=== PATIENT | male | born 1965 | race African-American/Black ===

== ENCOUNTER 2018-07-30 20:24 | Emergency (ER) | payer MEDICARE, OTHER ==
[~2018-07-30 20:24] MED LIST: Iopamidol 370 76% 100 ML VIAL ONE
[2018-07-30 21:39] LABS: INR-International Normal Ratio 1.1; PTT 29.4 SEC (22.9-36.1); Prothrombin Time 13.9 SEC (12.0-14.7)
[2018-07-30 21:42] LABS: Anisocytosis SLIGHT = 6-15 cells (100X) (0-5/hpf); Band 3 % (5-11); Eosinophils 4 % (0-10); Hemoglobin 14.3 g/dL (14.0-18.0); Lymphocytes 22 % (21-51); MDiff Complete? YES; Mean Corpuscular HGB CONC 29.9 g/dL (32.0-36.0); Mean Corpuscular Hemoglobin 23.5 pg (27.0-31.0); Mean Corpuscular Volume 78.4 fL (78.0-98.0); Mean Platelet Volume 11.2 fL (7.4-10.4); Microcytosis SLIGHT = 6-15 cells (100X) (0-5/hpf); Monocytes 4 % (0-10); Neutrophil 67 % (42-75); Platelet Count 189 thou/uL (130-400); Platelet Morphology Comment Appears Adequate; RBC Distribution Width 14.2 % (11.5-14.5); White Blood Cell (WBC) Count 8.2 thou/uL (4.8-10.8)
[2018-07-30 21:45] LABS: ALT (SGPT) 20 U/L (8-55); AST (SGOT) 28 U/L (5-34); Alkaline Phosphatase 94 U/L (40-150); Anion Gap 15 mmol/L (10-20); BUN (Urea Nitrogen) 23 mg/dL (8.4-25.7); Bilirubin, Total 0.4 mg/dL (0.2-1.2); Calc. Creatinine Clearance 0 mL/min (70-130); Calcium 9.5 mg/dL (7.8-10.44); Carbon Dioxide 24 mmol/L (22-29); Chloride 106 mmol/L (98-107); Estimated GFR-MDRD 50; Globulin 3.2 g/dL (2.4-3.5); Glucose 114 mg/dL (70-105); Magnesium 2.8 mg/dL (1.6-2.6); Potassium 4.1 mmol/L (3.5-5.1); Protein, Total 7.2 g/dL (6.0-8.3); Sodium 141 mmol/L (136-145)
--- NOTE | 2018-07-30 22:18 | CT ---
NONCONTRAST ENHANCED CT IMAGES BRAIN 07/30/18 HISTORY: Headache. Noncontrast enhanced CT images of the brain obtained. Comparison made to previous exam from 12/28/11. FINDINGS/IMPRESSION: Noncontrast enhanced CT images of the brain demonstrates some deep white matter ischemic changes. No evidence of acute intracranial masses, hemorrhages, strokes or contusions seen. POS: [facility]
--- NOTE | 2018-07-30 23:14 | CT ---
CONTRAST ENHANCED CT IMAGES OF THE BRAIN: 07/30/18 HISTORY: Headache. Nose bleed. Contrast enhanced CT images of the brain obtained. Deep white matter ischemic changes seen. No evidence of abnormal areas of intracranial enhancement se en. IMPRESSION: 1. Deep white matter ischemic changes. 2. Vertebrobasilar dolichoectasia. POS: [facility]
== END 2018-07-31 01:35 | disposition short-term general hospital (02) ==
LOC: NAV ERS 20:24
DX: R51 Headache (principal); R04.0 Epistaxis; I16.0 Hypertensive urgency; G45.0 Vertebro-basilar artery syndrome; I10 Essential (primary) hypertension; Z86.73 Personal history of transient ischemic attack (TIA), and cerebral infarction without residual deficits; F17.210 Nicotine dependence, cigarettes, uncomplicated
CPT/HCPCS: 70450; 70460; 80053; 83735; 84484; 85025; 85610; 85730; 93005; 94760; Q9967

== ENCOUNTER 2018-08-02 17:50 | Emergency (ER) | payer MEDICARE, OTHER ==
[2018-08-02] MEDS ORDERED: Metoprolol Tartrate 50 MG TAB ONE (18:33)
[2018-08-02] MEDS ORDERED: Hydrochlorothiazide 25 MG TAB ONE (18:33)
[2018-08-02] MEDS ORDERED: Losartan Potassium 50 MG TAB ONE ×2 (18:33→18:36)
[2018-08-02] MEDS ORDERED: NIFEdipine XL 30 MG TAB ONE (18:33)
[2018-08-02] MEDS ORDERED: Spironolactone 25 MG TAB PO SCH (18:45)
[2018-08-02] MEDS ORDERED: Metoprolol Tartrate 5 MG/5 ML VIAL ONE (21:40)
[2018-08-02] MEDS ORDERED: Fentanyl 100 MCG/2 ML VIAL ONE (21:57)
[2018-08-02 22:11] LABS: Hemoglobin 15.6 g/dL (14.0-18.0); Red Blood Cell (RBC) Count 6.65 mill/uL (4.70-6.10); White Blood Cell (WBC) Count 12.9 thou/uL (4.8-10.8)
[2018-08-02 22:12] LABS: #Lymphocytes 1.9 thou/uL (1.20-3.40); #Monocytes 1.2 thou/uL (0.11-0.59); #Neutrophils 9.2 thou/uL (1.40-6.50); %Basophils 1.1 % (0.0-1.0); %Eosinophils 4.3 % (0.0-10.0); %Lymphocytes 14.6 % (21.0-51.0); Mean Corpuscular HGB CONC 30.2 g/dL (32.0-36.0); Mean Corpuscular Hemoglobin 23.5 pg (27.0-31.0); Mean Corpuscular Volume 77.9 fL (78.0-98.0); Mean Platelet Volume 10.5 fL (7.4-10.4); Platelet Count 217 thou/uL (130-400); RBC Distribution Width 14.3 % (11.5-14.5)
[2018-08-02 22:13] LABS: #Basophils 0.1 thou/uL (0.0-0.2); #Eosinphils 0.6 thou/uL (0.0-0.7); Microcytosis SLIGHT = 6-15 cells (100X) (0-5/hpf)
[2018-08-02 22:15] LABS: INR-International Normal Ratio 1.1; PTT 29.5 SEC (22.9-36.1); Prothrombin Time 14.2 SEC (12.0-14.7)
[2018-08-02] MEDS ORDERED: niCARdipine 20MG In NaCl 20 MG/200 ML BAG ONE (22:17)
[2018-08-02 22:18] LABS: Anion Gap 16 mmol/L (10-20); BUN (Urea Nitrogen) 29 mg/dL (8.4-25.7); Bilirubin, Total 1.1 mg/dL (0.2-1.2); Calc. Creatinine Clearance 0 mL/min (70-130); Calcium 10.4 mg/dL (7.8-10.44); Carbon Dioxide 24 mmol/L (22-29); Chloride 102 mmol/L (98-107); Estimated GFR-MDRD 88; Glucose 97 mg/dL (70-105); Potassium 3.7 mmol/L (3.5-5.1); Sodium 138 mmol/L (136-145)
[2018-08-02 22:19] LABS: Alkaline Phosphatase 101 U/L (40-150); Protein, Total 7.7 g/dL (6.0-8.3)
[2018-08-02 22:20] LABS: ALT (SGPT) 18 U/L (8-55); AST (SGOT) 20 U/L (5-34); Albumin 4.4 g/dL (3.5-5.0); Globulin 3.3 g/dL (2.4-3.5)
== END 2018-08-02 22:53 | disposition short-term general hospital (02) ==
LOC: NAV ERS 17:50
DX: R04.0 Epistaxis (principal); I10 Essential (primary) hypertension; Z86.73 Personal history of transient ischemic attack (TIA), and cerebral infarction without residual deficits; F17.210 Nicotine dependence, cigarettes, uncomplicated; Z79.899 Other long term (current) drug therapy
CPT/HCPCS: 85025; 85610; 85730; 96365; 96375; J3010

== ENCOUNTER 2019-10-03 14:02 | Emergency (ER) | payer MEDICARE, OTHER ==
[2019-10-03 15:34] LABS: #Basophils 0.2 thou/uL (0.0-0.2); #Eosinphils 0.3 thou/uL (0.0-0.7); #Lymphocytes 1.4 thou/uL (1.20-3.40); #Monocytes 0.6 thou/uL (0.11-0.59); #Neutrophils 7.1 thou/uL (1.40-6.50); %Basophils 2.5 % (0.0-1.0); %Eosinophils 3.3 % (0.0-10.0); %Lymphocytes 14.5 % (21.0-51.0); %Monocytes 6.4 % (0.0-10.0); %Neutrophils 73.2 % (42.0-75.0); Hemoglobin 12.6 g/dL (14.0-18.0); Mean Corpuscular HGB CONC 29.8 g/dL (32.0-36.0); Mean Corpuscular Volume 80.7 fL (78.0-98.0); Mean Platelet Volume 9.8 fL (7.4-10.4); Platelet Count 248 thou/uL (130-400); RBC Distribution Width 13.4 % (11.5-14.5); Red Blood Cell (RBC) Count 5.27 mill/uL (4.70-6.10); White Blood Cell (WBC) Count 9.8 thou/uL (4.8-10.8)
[2019-10-03 15:40] LABS: ALT (SGPT) 15 U/L (8-55); AST (SGOT) 13 U/L (5-34); Albumin 3.8 g/dL (3.5-5.0); Alkaline Phosphatase 81 U/L (40-110); Anion Gap 15 mmol/L (10-20); BUN (Urea Nitrogen) 20 mg/dL (8.4-25.7); Bilirubin, Total 0.3 mg/dL (0.2-1.2); Calc. Creatinine Clearance 0 mL/min (70-130); Calcium 8.5 mg/dL (7.8-10.44); Carbon Dioxide 25 mmol/L (22-29); Chloride 109 mmol/L (98-107); Estimated GFR-MDRD 45; Globulin 2.6 g/dL (2.4-3.5); Glucose 118 mg/dL (70-105); Lipase 54 U/L (8-78); Potassium 3.9 mmol/L (3.5-5.1); Protein, Total 6.4 g/dL (6.0-8.3); Sodium 145 mmol/L (136-145)
[2019-10-03 15:50] LABS: INR-International Normal Ratio 1.1; PTT 30.9 sec (22.9-36.1); Prothrombin Time 13.8 sec (12.0-14.7)
[2019-10-03 16:01] LABS: CKMB 1.6 ng/mL (0-6.6)
--- NOTE | 2019-10-03 16:04 | CT ---
CT BRAIN WITHOUT CONTRAST: HISTORY:Dizziness COMPARISON:07/30/2018 FINDINGS: There are foci of decreased attenuation in the periventricular white matter, consistent with chronic small vessel ischemic disease. No evidence of acute infarct, hemorrhage, midline shift or abnormal extra-axial fluid collections is seen. The ventricular size is appropriate and the basilar cisterns are patent. The bony calvarium is intact. The visualized paranasal sinuses and mastoid air cells are well aerated. IMPRESSION: No CT evidence of acute intracranial process.
[2019-10-03] MEDS ORDERED: hydrALAZINE 20 MG/ML VIAL ONE ×2 (16:50→19:42)
[2019-10-03 17:42] LABS: Bilirubin Negative (Negative); Blood, Urine Negative (Negative); Glucose, Urine (Dipstick) Negative (Negative); Leukocyte Small (Negative); Nitrite Negative (Negative); Protein, Urine (Dipstick) Negative (Neg-Trace); Urobilinogen 0.2 mg/dL (Less than 2)
[2019-10-03 17:52] LABS: Amphetamine Not Detected (NotDetected); Barbiturates Screen Not Detected (NotDetected); Benzodiazepine Screen Not Detected (NotDetected); Cocaine Metabolite Screen Not Detected (NotDetected); Medtox Control Line Valid? VALID (VALID); Methadone Not Detected (NotDetected); Methamphetamine Not Detected (NotDetected); Opiate Screen Not Detected (NotDetected); Oxycodone Screen Not Detected (NotDetected); Phencyclidine (PCP) Not Detected (NotDetected); THC/Cannabinoid Screen Detected (NotDetected); Tricyclic Screen Not Detected (NotDetected)
[2019-10-03 18:00] LABS: Clarity SL HAZY (Clear)
[2019-10-03 18:01] LABS: Squamous Epithelial 0-3 HPF (0-3); Trichomonas/HPF 2+ HPF (None Seen)
[2019-10-03] MEDS ORDERED: metroNIDAZOLE 500 MG TAB ONE (18:19)
[2019-10-03] MEDS ORDERED: Metoprolol Tartrate 5 MG/5 ML VIAL ONE ×2 (18:19→18:20)
[2019-10-03] MEDS ORDERED: NIFEdipine XL 30 MG TAB ONE (18:19)
== END 2019-10-03 20:10 | disposition home or self-care (01) ==
LOC: NAV ERS 14:02
DX: I10 Essential (primary) hypertension (principal); A59.9 Trichomoniasis, unspecified; Z86.73 Personal history of transient ischemic attack (TIA), and cerebral infarction without residual deficits; F17.210 Nicotine dependence, cigarettes, uncomplicated; Z79.899 Other long term (current) drug therapy
CPT/HCPCS: 70450; 80053; 80306; 81003; 81015; 82553; 83690; 84484; 85025; 85610; 85730; 93005; 96374; 96375; 96376; J0360

== ENCOUNTER 2020-12-24 09:15 | Emergency (ER) | payer MEDICAID, MEDICARE ==
[2020-12-24 10:04] LABS: Bilirubin Small (Negative); Blood, Urine Trace (Negative); Clarity Turbid (Clear); Glucose, Urine (Dipstick) 100 mg/dL (Negative); Ketone, Urine Negative (Negative); Leukocyte Small (Negative); Nitrite Negative (Negative); Protein, Urine (Dipstick) 30 mg/dL (Neg-Trace); Specific Gravity, Urine 1.025 (1.005-1.030); Urobilinogen 0.2 mg/dL (Less than 2); pH, Urine 5.5 (5.0-9.0)
[2020-12-24 10:12] LABS: Bacteria/HPF Rare-Few HPF (None Seen); RBC/HPF 0-3 HPF (0-3)
== END 2020-12-24 10:32 | disposition home or self-care (01) ==
LOC: NAV ERS 09:15
DX: R30.0 Dysuria (principal); B35.1 Tinea unguium; I10 Essential (primary) hypertension; F17.210 Nicotine dependence, cigarettes, uncomplicated
CPT/HCPCS: 81003; 81015; 87086; 99283

== ENCOUNTER 2021-12-20 15:23 | Emergency (ER) | payer MEDICAID, MEDICARE ==
[2021-12-20] MEDS ORDERED: Amlodipine 5 MG TAB ONE (16:33)
[2021-12-20] MEDS ORDERED: Acetaminophen 500 MG TAB ONE (16:45)
== END 2021-12-20 17:13 | disposition home or self-care (01) ==
LOC: NAV ERS 15:23
DX: I10 Essential (primary) hypertension (principal); M21.42 Flat foot [pes planus] (acquired), left foot; M21.41 Flat foot [pes planus] (acquired), right foot; M25.561 Pain in right knee; Z91.14 Patient's other noncompliance with medication regimen; F17.210 Nicotine dependence, cigarettes, uncomplicated; Z79.899 Other long term (current) drug therapy; W19.XXXA Unspecified fall, initial encounter

== ENCOUNTER 2025-03-01 16:44 | Emergency (ER) | payer MEDICARE, OTHER ==
[2025-03-01] MEDS ORDERED: Acetaminophen 500 MG TAB ONE (17:46)
[2025-03-01 18:12] LABS: Glucose, Urine (Dipstick) Negative (Negative); Leukocyte Negative (Negative); Protein, Urine (Dipstick) Trace mg/dL (Neg-Trace); Specific Gravity, Urine 1.020 (1.005-1.030)
[2025-03-01 18:32] LABS: Bacteria/HPF 2+ HPF (None Seen); CAUTI Indications for Culture Pelvic or flank pain; RBC/HPF 0-3 HPF (0-3)
[2025-03-01 18:34] LABS: Urine Culture Reflex No No
[2025-03-01] MEDS ORDERED: cloNIDine 0.1 MG TAB ONE (18:46)
[2025-03-01] MEDS ORDERED: Losartan 50 MG TAB ONE (18:46)
== END 2025-03-01 18:50 | disposition home or self-care (01) ==
LOC: NAV ERS 16:44
DX: S20.211A Contusion of right front wall of thorax, initial encounter (principal); I10 Essential (primary) hypertension; N39.0 Urinary tract infection, site not specified; E78.00 Pure hypercholesterolemia, unspecified; F17.210 Nicotine dependence, cigarettes, uncomplicated; Z79.899 Other long term (current) drug therapy; W19.XXXA Unspecified fall, initial encounter; Y92.096 Garden or yard of other non-institutional residence as the place of occurrence of the external cause
CPT/HCPCS: 81001; 99283